=== PATIENT | female | born 1960 ===

== ENCOUNTER 2020-11-21 10:54 | Emergency (ER) | payer OTHER ==
--- NOTE | 2020-11-21 11:10 | EDM.PDOC ---
ED HPI GENERAL MEDICAL PROBLEM - General Stated Complaint: BELIEVES HAS COVID Time Seen by Provider: 11/21/20 11:10 Source of Information: Reports: Patient, RN, RN Notes Reviewed History Limitations: Reports: No Limitations - History of Present Illness INITIAL COMMENTS - FREE TEXT/NARRATIVE: Patient is a 60-year-old female who presents to ER with complaints of shortness of breath and family members who are positive for Covid. Patient states she is a smoker and began having symptoms on Tuesday, November 15. She states she has become increasingly more short of breath. States she has had some body aches and decreased appetite, decreased fluid intake. Patient states her sister did test positive for Covid last Tuesday, and another sister who tested positive for Covid yesterday and was transferred due to PEs. Onset: Gradual Duration: Getting Worse Location: Reports: Generalized Generalized Pain Score (Numeric/FACES): 10 - Related Data Allergies Allergy/AdvReac Type Severity Reaction Status Date / Time No Known Allergies Allergy Verified 11/21/20 11:11 Home Meds: Home Meds Albuterol [Ventolin HFA] 18 gm IH Q6H 11/21/20 [History] Montelukast [Singulair] 10 mg PO DAILY 11/21/20 [History] Simvastatin [Zocor] 20 mg PO BEDTIME 11/21/20 [History] metFORMIN [Glucophage] 500 mg PO BID 11/21/20 [History] ED ROS GENERAL - Review of Systems Review Of Systems: Comprehensive ROS is negative, except as noted in HPI. ED EXAM, GENERAL - Physical Exam Exam: See Below Exam Limited By: No Limitations General Appearance: Alert, WD/WN, No Apparent Distress Eye Exam: Bilateral Eye: EOMI, Normal Inspection, PERRL Ears: Normal External Exam, Normal Canal, Hearing Grossly Normal, Normal TMs Nose: Normal Inspection, Normal Mucosa, No Blood Throat/Mouth: Normal Inspection, Normal Lips, Normal Teeth, Normal Gums, Normal Oropharynx, Normal Voice, No Airway Compromise Head: Atraumatic Neck: Normal Inspection, Supple, Non-Tender, Full Range of Motion Respiratory/Chest: Crackles (fine crackles ), Wheezing (intermittent) Cardiovascular: Normal Peripheral Pulses, Regular Rate, Rhythm, No Edema, No Gallop, No JVD, No Murmur, No Rub GI/Abdominal: Normal Bowel Sounds, Soft, Non-Tender, No Organomegaly, No Distention, No Abnormal Bruit, No Mass (Female) Exam: Deferred Rectal (Female) Exam: Deferred Back Exam: Normal Inspection, Full Range of Motion, NT Extremities: Normal Inspection, Normal Range of Motion, Non-Tender, Normal Capillary Refill, No Pedal Edema Neurological: Alert, Oriented, CN II-XII Intact, Normal Cognition, Normal Gait, Normal Reflexes, No Motor/Sensory Deficits Psychiatric: Normal Affect, Normal Mood Skin Exam: Warm, Dry, Intact, Normal Color, No Rash Lymphatic: No Adenopathy Course - Vital Signs Last Recorded V/S: Last Vital Signs Temp 98.5 F 11/21/20 11:38 Pulse 80 11/21/20 11:38 Resp 18 11/21/20 11:38 BP 105/51 L 11/21/20 11:38 Pulse Ox 88 L 11/21/20 11:38 - Orders/Labs/Meds Orders: Active Orders 24 hr Category Date Time Status CULTURE BLOOD [BC] Stat Lab 11/21/20 11:23 Received Isolation [COMM] Routine Oth 11/21/20 10:56 Active Labs: Laboratory Tests 11/21/20 11/21/20 11/21/20 Range/Units 11:07 11:23 11:23 WBC 2.9 L (5.0-10.0) 10^3/uL RBC 4.22 (4.2-5.4) 10^6/uL Hgb 14.1 (12.0-16.0) g/dL Hct 40.3 (37.0-47.0) % MCV 95.5 (80-100) fL MCH 33.4 (27.0-34.0) pg MCHC 35.0 (33.0-35.0) g/dL Plt Count 133 L (150-450) 10^3/uL Neut % (Auto) 65.9 (42.2-75.2) % Lymph % (Auto) 26.3 (20.5-50.1) % [place] % (Auto) 7.5 (2-8) % Eos % (Auto) 0.0 L (1.0-3.0) % Baso % (Auto) 0.3 (0.0-1.0) % D-Dimer, Quantitative 600 H (0-400) ng/mL Sodium (136-145) mmol/L Potassium (3.5-5.1) mmol/L Chloride (98-107) mmol/L Carbon Dioxide (21-32) mmol/L Anion Gap (7-13) mEq/L BUN (7-18) mg/dL Creatinine (0.55-1.02) mg/dL Est Cr Clr Drug Dosing mL/min Estimated GFR (MDRD) BUN/Creatinine Ratio (No establ ref range) Glucose (70-99) mg/dL Lactic Acid (0.4-2.0) mmol/L Calcium (8.5-10.1) mg/dL Total Bilirubin (0.2-1.0) mg/dL AST (15-37) U/L ALT (14-59) U/L Alkaline Phosphatase (46-116) U/L C-Reactive Protein (0.0-0.9) mg/dL B-Natriuretic Peptide (0-100) pg/ml Total Protein (6.4-8.2) g/dL Albumin (3.4-5.0) g/dL Globulin Albumin/Globulin Ratio SARS-CoV-2 RNA (ELDON) Positive H (NEGATIVE) 11/21/20 11/21/20 Range/Units 11:23 11:23 WBC (5.0-10.0) 10^3/uL RBC (4.2-5.4) 10^6/uL Hgb (12.0-16.0) g/dL Hct (37.0-47.0) % MCV (80-100) fL MCH (27.0-34.0) pg MCHC (33.0-35.0) g/dL Plt Count (150-450) 10^3/uL Neut % (Auto) (42.2-75.2) % Lymph % (Auto) (20.5-50.1) % [place] % (Auto) (2-8) % Eos % (Auto) (1.0-3.0) % Baso % (Auto) (0.0-1.0) % D-Dimer, Quantitative (0-400) ng/mL Sodium 138 (136-145) mmol/L Potassium 3.7 (3.5-5.1) mmol/L Chloride 101 (98-107) mmol/L Carbon Dioxide 23 (21-32) mmol/L Anion Gap 17.7 H (7-13) mEq/L BUN 10 (7-18) mg/dL Creatinine 0.66 (0.55-1.02) mg/dL Est Cr Clr Drug Dosing 82.73 mL/min Estimated GFR (MDRD) > 60 BUN/Creatinine Ratio 15.2 (No establ ref range) Glucose 171 H (70-99) mg/dL Lactic Acid 0.9 (0.4-2.0) mmol/L Calcium 8.4 L (8.5-10.1) mg/dL Total Bilirubin 0.4 (0.2-1.0) mg/dL AST 28 (15-37) U/L ALT 28 (14-59) U/L Alkaline Phosphatase 111 (46-116) U/L C-Reactive Protein 7.8 H (0.0-0.9) mg/dL B-Natriuretic Peptide 12 (0-100) pg/ml Total Protein 6.5 (6.4-8.2) g/dL Albumin 3.1 L (3.4-5.0) g/dL Globulin 3.4 Albumin/Globulin Ratio 0.91 SARS-CoV-2 RNA (ELDON) (NEGATIVE) Meds: Medications Discontinued Medications Generic Name Dose Route Start Last Admin Trade Name Freq PRN Reason Stop Dose Admin Iopamidol 100 ml 11/21/20 12:28 11/21/20 14:16 Iopamidol 755 Mg/Ml 100 Ml Bottle IVPUSH 11/21/20 12:29 68 ml ONETIME ONE Administration Racepinephrine 0.5 ml 11/21/20 14:53 11/21/20 15:13 Racepinephrine 2.25% 0.5 Ml Neb Soln NEB 11/21/20 14:54 Not Given ONETIME ONE - Radiology Interpretation Free Text/Narrative:: CT chest with contrast/PE study: PROCEDURE INFORMATION: Exam: CT Chest With Contrast; Diagnostic Exam date and time: 11/21/2020 1:59 PM Age: 60 years old Clinical indication: Other: Pe study, covid +; Additional info: Pe study, covid + TECHNIQUE: Imaging protocol: Diagnostic computed tomography of the chest with contrast. Radiation optimization: All CT scans at this facility use at least one of these dose optimization techniques: automated exposure control; mA and/or kV adjustment per patient size (includes targeted exams where dose is matched to clinical indication); or iterative reconstruction. Contrast material: ISOVUE 370; Contrast volume: 68 ml; Contrast route: INTRAVENOUS (IV); COMPARISON: No relevant prior studies available. FINDINGS: Lungs: The lungs demonstrate mild to moderate peripheral predominant areas of patchy groundglass opacity with interlobular septal thickening. This involves all lobes with most p redominant involvement in the lower lobes. There is no significant airspace consolidation. The central airways appear patent. Pleural spaces: Unremarkable. No pneumothorax. No pleural effusion. Heart: Coronary artery calcifications are noted. No significant pericardial effusion. Mediastinal space: There is a small hiatal hernia. Pulmonary arteries: No pulmonary embolus is identified. Aorta: The thoracic aorta is nonaneurysmal. Atherosclerotic vascular calcifications are noted. Lymph nodes: Unremarkable. No enlarged lymph nodes. Liver: The partially included liver is mildly fatty in density, and contains a 12 mm cyst. Bones/joints: Degenerative changes involve the spine. Soft tissues: Unremarkable. IMPRESSION: 1. No pulmonary embolus identified. 2. Mild to moderate bilateral pulmonary opacities as above. Such imaging features are commonly reported with COVID-19 pneumonia, but other processes such as influenza pneumonia and organizing pneumonia, as can be seen with drug toxicity and connective tissue disease, can cause a similar imaging pattern. (Reference: Jay) 3. Small hiatal hernia. REFERENCES: Jay Rico, et al., [employer] Society of [place] Expert Consensus Statement on Reporting Chest CT Findings Related to COVID-19. Endorsed by the Society of Thoracic Radiology, the [place] [employer], and RSNA. Published June 20, 2019. Thank you for allowing us to participate in the care of your patient. Dictated and Authenticated by: Stuart Fleming MD 11/21/2020 2:39 PM Central Time ([place] & [place]) See radiologist report - Re-Assessments/Exams Free Text/Narrative Re-Assessment/Exam: 11/21/20 17:12 Patient room air oxygen is 87-88%. When O2 applied Sats increased to 94%. Patient offered Regeneron for COVID symptoms. Patient declines this at this time. Patient declined admission to the hospital, would like to go home with Oxygen if at all possible. Arranged for patient to have home oxygen, nebulizer, and home O2 Saturation monitor. Departure - Departure Time of Disposition: 16:48 Disposition: Home, Self-Care 01 Condition: Fair Clinical Impression: COVID-19 - Discharge Information *PRESCRIPTION DRUG MONITORING PROGRAM REVIEWED*: No *COPY OF PRESCRIPTION DRUG MONITORING REPORT IN PATIENT JUAN M: No Instructions: Steps to Quit Smoking, [id number], COVID-19 Frequently Asked Questions, Shortness of Breath, Adult, [id number], What You Should Know About COVID-19 to Protect Yourself and Others - [facility], 10 Things You Can Do to Manage Your COVID-19 Symptoms at Home - [facility] (09/26/2019) Forms: ED Department Discharge Additional Instructions: Use home oxygen 2 L per nasal cannula as needed for shortness of breath Monitor oxygen saturation Rx: Pulmicort nebulizer every 4 hours as needed for shortness of breath May use Tylenol and/or ibuprofen as directed for pain/fever Rest Stay hydrated, drink plenty of water Quarantine for 5 more days Return to the ER with any worsening of symptoms Sepsis Event Note (ED) - Focused Exam Vital Signs: Vital Signs Temp Pulse Resp BP Pulse Ox 11/21/20 11:38 98.5 F 80 18 105/51 L 88 L - My Orders Last 24 Hours: My Active Orders 11/21/20 10:56 Isolation [COMM] Routine 11/21/20 11:23 CULTURE BLOOD [BC] Stat - Assessment/Plan Last 24 Hours: My Active Orders 11/21/20 10:56 Isolation [COMM] Routine 11/21/20 11:23 CULTURE BLOOD [BC] Stat
[2020-11-21 11:49] LABS: ANION GAP 17.7 mEq/L (7-13); CHLORIDE,CL 101 mmol/L (98-107); SODIUM,NA 138 mmol/L (136-145)
[2020-11-21] MEDS ORDERED: Iopamidol 755 Mg/ML 100 ML Bottle IVPUSH ONE (12:28)
--- NOTE | 2020-11-21 14:40 | CT ---
PROCEDURE INFORMATION: Exam: CT Chest With Contrast; Diagnostic Exam date and time: 11/21/2020 1:59 PM Age: 60 years old Clinical indication: Other: Pe study, covid +; Additional info: Pe study, covid + TECHNIQUE: Imaging protocol: Diagnostic computed tomography of the chest with contrast. Radiation optimization: All CT scans at this facility use at least one of these dose optimization techniques: automated exposure control; mA and/or kV adjustment per patient size (includes targeted exams where dose is matched to clinical indication); or iterative reconstruction. Contrast material: ISOVUE 370; Contrast volume: 68 ml; Contrast route: INTRAVENOUS (IV); COMPARISON: No relevant prior studies available. FINDINGS: Lungs: The lungs demonstrate mild to moderate peripheral predominant areas of patchy ground-glass opacity with interlobular septal thickening. This involves all lobes with most predominant involvement in the lower lobes. There is no significant airspace consolidation. The central airways appear patent. Pleural spaces: Unremarkable. No pneumothorax. No pleural effusion. Heart: Coronary artery calcifications are noted. No significant pericardial effusion. Mediastinal space: There is a small hiatal hernia. Pulmonary arteries: No pulmonary embolus is identified. Aorta: The thoracic aorta is nonaneurysmal. Atherosclerotic vascular calcifications are noted. Lymph nodes: Unremarkable. No enlarged lymph nodes. Liver: The partially included liver is mildly fatty in density, and contains a 12 mm cyst. Bones/joints: Degenerative changes involve the spine. Soft tissues: Unremarkable. IMPRESSION: 1. No pulmonary embolus identified. 2. Mild to moderate bilateral pulmonary opacities as above. Such imaging features are commonly reported with COVID-19 pneumonia, but other processes such as influenza pneumonia and organizing pneumonia, as can be seen with drug toxicity and connective tissue disease, can cause a similar imaging pattern. (Reference: Jay) 3. Small hiatal hernia. REFERENCES: Jay Rico et al., [employer] Society [place] Expert Consensus Statement on Reporting Chest CT Findings Related to COVID-19. Endorsed by the Society of Thoracic Radiology, the [place] [employer], and RSNA. Published June 20, 2019.
[2020-11-21] MEDS ORDERED: Racepinephrine 2.25% 0.5 ML Neb Soln NEB ONE (14:53)
== END 2020-11-21 16:48 | disposition home or self-care (01) ==
LOC: DL.ED 10:54
DX: U07.1 COVID-19 (principal); Z79.899 Other long term (current) drug therapy; Z79.84 Long term (current) use of oral hypoglycemic drugs
CPT/HCPCS: 36415; 71260; 80053; 83605; 83880; 85025; 85379; 86140; 87040; 99285-25; Q9967; U0002